=== PATIENT | female | born 1985 | race Caucasian/White ===

== ENCOUNTER 2017-06-14 18:52 | Emergency (ER) | payer OTHER ==
[2017-06-14] MEDS ORDERED: ORPHENADRINE 30 MG/ML 2 ML VIAL IM STA (19:58)
[2017-06-14] MEDS ORDERED: KETOROLAC 60 MG/2 ML VIAL IM STA (19:58)
--- NOTE | 2017-06-14 20:19 | ED ---
General Adult HPI - General Chief complaint: Back Pain/Injury Stated complaint: back pain Time Seen by Provider: 06/14/17 19:30 Source: patient, RN notes reviewed, old records reviewed Mode of arrival: ambulatory Limitations: no limitations - History of Present Illness Initial comments: This patient is a 31-year-old female presents emergency Department a chief complaint of lower back pain. 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 Patient reports that she has no trauma or falls. She states been worse for the past few days. She' s not been taking any medication for pain. Patient denies any saddle anesthesias. Patient denies any recent fever, chills, shortness of breath, chest pain, abdominal pain, nausea vomiting, numbness or tingling, dysuria or hematuria, constipation or diarrhea, headaches or visual changes, or any other current symptoms - Related Data Previous Rx's Medication Instructions Recorded Cyclobenzaprine [Flexeril] 10 mg PO TID #20 tab 06/14/17 Ibuprofen [Motrin] 800 mg PO TID #30 tab 06/14/17 Allergies Allergy/AdvReac Type Severity Reaction Status Date / Time codeine Allergy Unknown Verified 06/14/17 20:16 codeine phosphate Allergy Swelling Verified 06/14/17 20:16 [From Tylenol-Codeine #3] ondansetron HCl [From Zofran] Allergy Swelling Verified 06/14/17 20:16 tomato [Tomato] Allergy Rash/Hives Verified 06/14/17 20:16 Review of Systems ROS Statement: Those systems with pertinent positive or pertinent negative responses have been documented in the HPI. ROS Other: All systems not noted in ROS Statement are negative. Past Medical History Past Medical History: Asthma Additional Past Medical History / Comment(s): pancreatitis, back pain History of Any Multi-Drug Resistant Organisms: None Reported Past Surgical History: Cholecystectomy, Orthopedic Surgery Additional Past Surgical History / Comment(s): arm surgery, pancreas surgery Past Psychological History: No Psychological Hx Reported Smoking Status: Current every day smoker Past Alcohol Use History: None Reported Past Drug Use History: Marijuana General Exam - General Exam Comments Initial Comments: Well appearing 31 year old female, no acute distress. Limitations: no limitations General appearance: alert, in no apparent distress Head exam: Present: atraumatic, normocephalic, normal inspection Eye exam: Present: normal appearance, PERRL, EOMI. Absent: scleral icterus, conjunctival injection, periorbital swelling ENT exam: Present: normal exam, mucous membranes moist Neck exam: Present: normal inspection. Absent: tenderness, meningismus, lymphadenopathy Respiratory exam: Present: normal lung sounds bilaterally. Absent: respiratory distress, wheezes, rales, rhonchi, stridor Cardiovascular Exam: Present: regular rate, normal rhythm, normal heart sounds. Absent: systolic murmur, diastolic murmur, rubs, gallop, clicks GI/Abdominal exam: Present: soft, normal bowel sounds. Absent: distended, tenderness, guarding, rebound, rigid Extremities exam: Present: normal inspection, full ROM, normal capillary refill. Absent: tenderness, pedal edema, joint swelling, calf tenderness Back exam: Present: normal inspection, tenderness (Lumbar paraspinal tenderness. ) Neurological exam: Present: alert, oriented X3, CN II-XII intact Psychiatric exam: Present: normal affect, normal mood Skin exam: Present: warm, dry, intact, normal color. Absent: rash Course Vital Signs 06/14/17 06/14/17 19:20 21:14 Temperature 98.6 F 97.3 F L Pulse Rate 93 54 L Respiratory 20 16 Rate Blood Pressure 99/60 116/68 O2 Sat by Pulse 97 98 Oximetry Medical Decision Making - Medical Decision Making 31-year-old female presents emergency department today chief complaint of worsening lower back pain. She has history of degenerative disc disease. She states she is not taking anything for pain. She reports it's worse with movement. No saddle anesthesias. She has full range motion her legs no difficulty walking. She does have some minor tenderness over lumbar spinal region. X-rays were reviewed at this time showed no acute process. No spondylolisthesis or spondylolysis. Patient informed of these results. She was given IM Toradol and Norflex. Discussed the patient is to take antibiotic and her medicine and I can write the patient for Flexeril for muscle relaxer. Discussed following up with primary care provider and return parameters were discussed. - Radiology Data Radiology results: report reviewed Normal lumbar spine. Disposition Clinical Impression: Strain of lumbar region, Mechanical back pain Disposition: HOME SELF-CARE Condition: Good Instructions: Chronic Back Pain (ED) Additional Instructions: Patient advised to follow-up with primary care provider. Is take the medications as prescribed. Return to the emergency department if any alarming signs or symptoms occur. Prescriptions: Cyclobenzaprine [Flexeril] 10 mg PO TID #20 tab Ibuprofen [Motrin] 800 mg PO TID #30 tab Referrals: Presley Ashby DO [Primary Care Provider] - 1-2 days Time of Disposition: 21:01
--- NOTE | 2017-06-14 20:33 | XR ---
EXAMINATION TYPE: XR lumbar spine 2 or 3V DATE OF EXAM: 06/14/2017 COMPARISON: 06/03/2011 HISTORY: Pain TECHNIQUE: 3 views FINDINGS: Lumbar vertebra have normal spacing and alignment. Posterior elements are intact. Sacroilia c joints appear normal. IUD is noted. There are clips from cholecystectomy. IMPRESSION: Normal lumbar spine. No change.
[2017-06-14 21:15] VITALS: BP 116/68; PULSE 54; RESP 16; TEMP 97.3
== END 2017-06-14 21:15 | disposition home or self-care (01) ==
LOC: EC 18:52
DX: S39.012A Strain of muscle, fascia and tendon of lower back, initial encounter (principal); F17.200 Nicotine dependence, unspecified, uncomplicated; Z87.39 Personal history of other diseases of the musculoskeletal system and connective tissue; Z98.890 Other specified postprocedural states; Z88.5 Allergy status to narcotic agent; Z88.8 Allergy status to other drugs, medicaments and biological substances; Z91.018 Allergy to other foods
CPT/HCPCS: 72100; 99284; 96372 ×2; J2360; J1885

== ENCOUNTER 2018-01-04 12:03 | Emergency (ER) | payer OTHER ==
[2018-01-04 12:10] VITALS: BP 123/86; PULSE 74; RESP 20; TEMP 97.6
--- NOTE | 2018-01-04 12:50 | ED ---
URI HPI - General Chief Complaint: Upper Respiratory Infection Stated Complaint: Coughing/sore throat Time Seen by Provider: 01/04/18 12:16 Source: patient, RN notes reviewed Mode of arrival: ambulatory Limitations: no limitations - History of Present Illness Initial Comments: This is a 32-year-old female who presents to the emergency department with chief complaint of upper respiratory symptoms. Patient complains of sore throat , nasal congestion, cough and bilateral ear pain for the past 4 days. She states her young daughter has the same symptoms. Denies any fevers or chills. Denies chest pain or shortness of breath, abdominal pain, nausea or vomiting, diarrhea or constipation. - Related Data Home Medications Medication Instructions Recorded Confirmed No Known Home Medications 01/04/18 01/04/18 Allergies Allergy/AdvReac Type Severity Reaction Status Date / Time codeine Allergy Swelling Verified 01/04/18 12:38 codeine phosphate Allergy Swelling Verified 01/04/18 12:38 [From Tylenol-Codeine #3] ondansetron HCl [From Zofran] Allergy Swelling Verified 01/04/18 12:38 tomato [Tomato] Allergy Rash/Hives Verified 01/04/18 12:38 Review of Systems ROS Statement: Those systems with pertinent positive or pertinent negative responses have been documented in the HPI. ROS Other: All systems not noted in ROS Statement are negative. Past Medical History Past Medical History: Asthma Additional Past Medical History / Comment(s): pancreatitis, back pain History of Any Multi-Drug Resistant Organisms: None Reported Past Surgical History: Cholecystectomy, Orthopedic Surgery Additional Past Surgical History / Comment(s): arm surgery, pancreas surgery Past Psychological History: No Psychological Hx Reported Smoking Status: Current every day smoker Past Alcohol Use History: None Reported Past Drug Use History: Marijuana General Exam - General Exam Comments Initial Comments: General: Awake and alert, well-developed; in no apparent distress. HEENT: Head atraumatic, normocephalic. Pupils are equal, round and reactive to light. Extraocular movements intact. Oropharynx moist without erythema or exudate. Bilateral TMs pearly with mild clear effusion. Neck: Supple. Normal ROM. Cardiovascular: Regular rate and rhythm. No murmurs, rubs or gallops. Chest symmetrical. Respiratory: Lungs clear to auscultation bilaterally. No wheezes, rales or rhonchi. Normal respiratory effort with no use of accessory muscles. Musculoskeletal: Normal ROM, no tenderness bilateral upper and lower extremities. Ambulating normally. Skin: [place], warm and dry without rashes or lesions. Neurological: Alert and oriented x3. CN II-XII grossly intact. Speech is fluent and answers are appropriate. No focal neuro deficits. Psychiatric: Normal mood and affect. No overt signs of depression or anxiety noted. Limitations: no limitations Course Vital Signs 01/04/18 12:08 Temperature 97.6 F Pulse Rate 74 Respiratory 20 Rate Blood Pressure 123/86 O2 Sat by Pulse 98 Oximetry Medical Decision Making - Medical Decision Making This is a 32-year-old female presents to the emergency department with chief complaint of upper respiratory symptoms. Patient reports cough, nasal congestion, sore throat and bilateral ear pain for the past 4 days. Her daughter has the same symptoms. Likely suffering from common cold. Recommended supportive treatment. Patient's vital signs are stable and she is in no acute distress. She denies any fevers or chills. Patient will be discharged home at this time. She is in agreement and voices understanding. All questions were answered. Disposition Clinical Impression: Upper respiratory infection Disposition: HOME SELF-CARE Instructions: Upper Respiratory Infection (ED) Additional Instructions: Please follow up with primary care provider within 1-2 days. Return to emergency department if symptoms should worsen or any concerns arise. Is patient prescribed a controlled substance at d/c from ED?: No Referrals: Presley Ashby DO [Primary Care Provider] - 1-2 days Time of Disposition: 12:49
== END 2018-01-04 13:18 | disposition home or self-care (01) ==
LOC: EC 12:03
DX: J06.9 Acute upper respiratory infection, unspecified (principal); H73.893 Other specified disorders of tympanic membrane, bilateral; H92.03 Otalgia, bilateral; F17.200 Nicotine dependence, unspecified, uncomplicated; Z88.5 Allergy status to narcotic agent; Z88.8 Allergy status to other drugs, medicaments and biological substances; Z91.018 Allergy to other foods
CPT/HCPCS: 99283

== ENCOUNTER 2019-05-24 14:15 | Emergency (ER) | payer OTHER ==
[2019-05-24 14:23] VITALS: BP 120/79; PULSE 76; RESP 18; TEMP 98.4
[2019-05-24] MEDS ORDERED: ACET/COD 300 MG/30 MG STARTER PACK 6 TAB BTL PO STA (14:40)
[2019-05-24] MEDS ORDERED: PENICILLIN VK 500MG STARTER 4 TAB BTL PO STA (14:40)
--- NOTE | 2019-05-24 14:42 | ED ---
General Adult HPI - General Chief complaint: Dental/Oral Stated complaint: Oral Pain Time Seen by Provider: 05/24/19 14:26 Source: patient, RN notes reviewed Mode of arrival: ambulatory Limitations: no limitations - History of Present Illness Initial comments: 33-year-old female presents to the emergency department for a chief complaint of dental pain. Patient states that a few days ago she broke her left molar. States it just started breaking into pieces. States it is very painful and swollen. Patient states she did try to contact her dentist but she was told she does not have dental insurance at this time. Patient denies any neck stiffness. Denies any swelling under the tongue. Does admit that she has an abrasion to the lateral aspect of the left tongue from her broken tooth. Patient denies fevers or chills.Patient has no other complaints at this time including shortness of breath, chest pain, abdominal pain, nausea or vomiting, headache, or visual changes. - Related Data Previous Rx's Medication Instructions Recorded Ibuprofen [Motrin] 600 mg PO Q6HR PRN #20 tab 05/24/19 Penicillin V Potassium [Pen Vee K] 500 mg PO Q6H 10 Days #40 tablet 05/24/19 Allergies Allergy/AdvReac Type Severity Reaction Status Date / Time codeine Allergy Swelling Verified 05/24/19 14:23 codeine phosphate Allergy Swelling Verified 05/24/19 14:23 [From Tylenol-Codeine #3] ondansetron HCl [From Zofran] Allergy Swelling Verified 05/24/19 14:23 tomato [Tomato] Allergy Rash/Hives Verified 05/24/19 14:23 Review of Systems ROS Statement: Those systems with pertinent positive or pertinent negative responses have been documented in the HPI. ROS Other: All systems not noted in ROS Statement are negative. Past Medical History Past Medical History: Asthma Additional Past Medical History / Comment(s): pancreatitis, back pain History of Any Multi-Drug Resistant Organisms: None Reported Past Surgical History: Cholecystectomy, Orthopedic Surgery Additional Past Surgical History / Comment(s): arm surgery, pancreas surgery Past Psychological History: Anxiety, Depression Smoking Status: Current every day smoker Past Alcohol Use History: None Reported Past Drug Use History: Marijuana General Exam Limitations: no limitations General appearance: alert, in no apparent distress Head exam: Present: atraumatic, normocephalic, normal inspection Eye exam: Present: normal appearance, PERRL, EOMI. Absent: scleral icterus, conjunctival injection ENT exam: Present: normal exam, mucous membranes moist, TM's normal bilaterally, other (Generally poor dentition). Absent: normal oropharynx (Patient has a fractured tooth 31. there is no abscess palpated or visualized along the gumline. Patient does not have any significant edema of the gums. No edema sublingually. Patient does have a small abrasion noted to the lateral aspect of the left side of the tongue caused by her tooth.) Neck exam: Present: normal inspection, full ROM (Full range of motion,). Absent: tenderness, meningismus, lymphadenopathy Respiratory exam: Present: normal lung sounds bilaterally. Absent: respiratory distress, wheezes, rales, rhonchi, stridor Cardiovascular Exam: Present: regular rate, normal rhythm, normal heart sounds. Absent: systolic murmur, diastolic murmur, rubs, gallop, clicks Course Vital Signs 05/24/19 14:20 Temperature 98.4 F Pulse Rate 76 Respiratory 18 Rate Blood Pressure 120/79 O2 Sat by Pulse 97 Oximetry Medical Decision Making - Medical Decision Making Patient has a fractured molar on the left lower jaw. I do not see any abscesses. I do not see any gingival edema or sublingual edema. Patient be tr eated with antibiotics to prevent infection. Patient states her pain is uncontrolled at home. I did give her Motrin, denies any chance of . Patient states she is not ALLERGIC to codeine it just causes slight nausea when she does not eat. Therefore she'll be given a starter pack of Tylenol 3. I recommended she follow up with her dentist as soon as possible and I did give her follow-up to [facility] as she may have lapsed insurance. I recommend she returns or she has any worsening symptoms. These were discussed thoroughly with her. Disposition Clinical Impression: Pain, dental Disposition: HOME SELF-CARE Condition: Good Instructions (If sedation given, give patient instructions): Toothache (ED) Additional Instructions: Please take antibiotic as directed. Take Motrin for pain. If pain is severe take Tylenol 3. Do not [address] or operate machinery while taking Tylenol 3 as it may make you drowsy. Follow-up with primary care as well as dentist as soon as possible. Return here for any worsening symptoms. [facility] Address: [address] [place] [address] [place] [address] Prescriptions: Ibuprofen [Motrin] 600 mg PO Q6HR PRN #20 tab PRN Reason: Pain Penicillin V Potassium [Pen Vee K] 500 mg PO Q6H 10 Days #40 tablet Is patient prescribed a controlled substance at d/c from ED?: No Referrals: Presley Ashby DO [Primary Care Provider] - 1-2 days Time of Disposition: 14:41
== END 2019-05-24 14:48 | disposition home or self-care (01) ==
LOC: EC 14:15
DX: S02.5XXA Fracture of tooth (traumatic), initial encounter for closed fracture (principal); S00.512A Abrasion of oral cavity, initial encounter; F17.200 Nicotine dependence, unspecified, uncomplicated; Z88.5 Allergy status to narcotic agent; Z88.8 Allergy status to other drugs, medicaments and biological substances; Z91.018 Allergy to other foods
CPT/HCPCS: 99282

== ENCOUNTER 2020-09-07 20:55 | Emergency (ER) | payer OTHER ==
[2020-09-07 21:17] VITALS: PULSE 100; RESP 20
[2020-09-07] MEDS ORDERED: HYDROmorphone 1 MG/ML 1 ML SYRINGE IM STA (21:44)
[2020-09-07] MEDS ORDERED: dexAMETHasone 2 MG TAB PO STA (21:44)
[2020-09-07] MEDS ORDERED: diphenhydrAMINE 50 MG CAP PO STA (21:44)
[2020-09-07] MEDS ORDERED: IBUPROFEN 800 MG TAB PO STA (21:44)
--- NOTE | 2020-09-07 21:45 | ED ---
Recheck HPI - General Chief Complaint: Back Pain/Injury Stated Complaint: Back pain Time Seen by Provider: 09/07/20 21:40 Source: patient Mode of arrival: ambulatory Limitations: no limitations - Related Data Previous Rx's Medication Instructions Recorded Ibuprofen [Motrin] 600 mg PO Q6HR PRN #20 tab 05/24/19 Penicillin V Potassium [Pen Vee K] 500 mg PO Q6H 10 Days #40 tablet 05/24/19 Allergies Allergy/AdvReac Type Severity Reaction Status Date / Time codeine Allergy Swelling Verified 09/07/20 21:17 codeine phosphate Allergy Swelling Verified 09/07/20 21:17 [From Tylenol-Codeine #3] ondansetron HCl [From Zofran] Allergy Swelling Verified 09/07/20 21:17 tomato [Tomato] Allergy Rash/Hives Verified 09/07/20 21:17 Review of Systems ROS Statement: Those systems with pertinent positive or pertinent negative responses have been documented in the HPI. ROS Other: All systems not noted in ROS Statement are negative. Past Medical History Past Medical History: Asthma Additional Past Medical History / Comment(s): pancreatitis, back pain History of Any Multi-Drug Resistant Organisms: None Reported Past Surgical History: Cholecystectomy, Orthopedic Surgery Additional Past Surgical History / Comment(s): arm surgery, pancreas surgery Past Psychological History: Anxiety, Depression Smoking Status: Current every day smoker Past Alcohol Use History: None Reported Past Drug Use History: Marijuana General Exam Limitations: no limitations Course Vital Signs 09/07/20 21:09 Temperature 98.9 F Pulse Rate 100 Respiratory 20 Rate Blood Pressure 146/117 O2 Sat by Pulse 98 Oximetry Disposition Clinical Impression: Strain of lumbar region, Lumbar radiculopathy, Sciatica Disposition: HOME SELF-CARE Condition: Good Instructions (If sedation given, give patient instructions): Acute Low Back Pain (ED) Is patient prescribed a controlled substance at d/c from ED?: No Referrals: Presley Ashby DO [Primary Care Provider] - 1-2 days
[2020-09-07] MEDS ORDERED: traMADol 50 MG STARTER PACK 3 TAB BTL PO STA (22:25)
--- NOTE | 2020-09-07 22:56 | CT ---
EXAMINATION TYPE: CT abdomen pelvis wo con DATE OF EXAM: 09/07/2020 COMPARISON: 04/26/2012 HISTORY: Back pain, sciatic pain CT DLP: 382.9 mGycm Automated exposure control for dose reduction was used. Lung bases are clear. There is no pleural effusion. Heart size is normal. There is no pericardial eff usion. Liver spleen appear intact. There is complex 1.5 cm cyst in the tail of the pancreas. This is in same location as a large pseudocyst evident on previous exam. There are clips from cholecystectomy. The b ile ducts are not dilated. Stomach appears normal. There is no adrenal mass. Kidneys have normal size. There is no hydronephrosis. There is 1 cm calculu s lower pole right kidney. There is 4 mm calculus upper pole left kidney. There is no retroperitoneal adenopathy. Ureters are not dilated. Appendix is posterior and lateral and appears normal. The bladd er distends smoothly. There is no inguinal hernia. There is no free fluid in the pelvis. There is IUD in the uterine fundus. The lumbar vertebra have normal alignment. Disc spaces are normal. There is n o compression fracture. Posterior elements are intact. The bony pelvis is intact. Hip joints are inta ct. IMPRESSION: Bilateral nonobstructing renal calculi. Normal appendix. No sign of acute abdomen and pelvis. Small c ystic mass in the tail of the pancreas is likely the residual of a pseudocyst evident on old exam.
[2020-09-07 23:22] VITALS: BP 160/90; TEMP 98
== END 2020-09-07 23:21 | disposition home or self-care (01) ==
LOC: EC 20:55
DX: S39.012A Strain of muscle, fascia and tendon of lower back, initial encounter (principal); M54.9 Dorsalgia, unspecified; M54.16 Radiculopathy, lumbar region; M54.30 Sciatica, unspecified side; J45.909 Unspecified asthma, uncomplicated; F17.200 Nicotine dependence, unspecified, uncomplicated; F12.90 Cannabis use, unspecified, uncomplicated; Z90.49 Acquired absence of other specified parts of digestive tract; X58.XXXA Exposure to other specified factors, initial encounter
CPT/HCPCS: 74176; 99284; 96372; J1170; J8540

== ENCOUNTER 2020-09-09 13:15 | Observation (INO) | payer OTHER ==
[2020-09-09] MEDS ORDERED: METOCLOPRAMIDE 5 MG/ML 2 ML VIAL IVP STA ×2 (14:31→16:15)
[2020-09-09] MEDS ORDERED: diphenhydrAMINE 50 MG/ML 1 ML VIAL IVP STA (14:31)
[2020-09-09] MEDS ORDERED: SODIUM CHLORIDE 0.9% 1,000 ML IV STA (14:31)
[2020-09-09] MEDS ORDERED: KETOROLAC 15 MG/ML 1 ML VIAL IVP STA (14:33)
--- NOTE | 2020-09-09 14:42 | ED ---
Abdominal Pain HPI - General Chief Complaint: Abdominal Pain Stated Complaint: Leg Pain,vomiting Time Seen by Provider: 09/09/20 14:00 Source: patient Mode of arrival: ambulatory Limitations: no limitations - History of Present Illness Initial Comments: Patient is a 34-year-old female presenting to the emergency Department with complaints of abdominal pain, nausea and vomiting for the last 4 days. Patient was seen here 2 days ago for left back pain, she has history of chronic back pain with sciatica. She states this has not changed and is still there. She states over the past 4 days she has not been able to keep any foods or liquids down. Patient seems very anxious. She states she has a history of pancreatitis in the past, she's had a pancreatic cyst drained a few times. She admits a cholecystectomy, no other abdominal surgeries. She denies any diarrhea, no fevers or chills. He admits to occasional marijuana use, no other drugs. She has no further complaints. Upon arrival to the ER, she seems very anxious, her pulse is 139, rest of vitals are normal. - Related Data Home Medications Medication Instructions Recorded Confirmed No Known Home Medications 09/09/20 09/09/20 Allergies Allergy/AdvReac Type Severity Reaction Status Date / Time codeine Allergy Swelling Verified 09/09/20 16:13 codeine phosphate Allergy Swelling Verified 09/09/20 16:13 [From Tylenol-Codeine #3] ondansetron HCl [From Zofran] Allergy Swelling Verified 09/09/20 16:13 tomato [Tomato] Allergy Rash/Hives Verified 09/09/20 16:13 Review of Systems ROS Statement: Those systems with pertinent positive or pertinent negative responses have been documented in the HPI. ROS Other: All systems not noted in ROS Statement are negative. Past Medical History Past Medical History: Asthma Additional Past Medical History / Comment(s): pancreatitis, back pain History of Any Multi-Drug Resistant Organisms: None Reported Past Surgical History: Cholecystectomy, Orthopedic Surgery Additional Past Surgical History / Comment(s): arm surgery, pancreas surgery Past Psychological History: Anxiety, Depression Smoking Status: Current every day smoker Past Alcohol Use History: None Reported Past Drug Use History: Marijuana General Exam - General Exam Comments Initial Comments: GENERAL: Patient is well-developed and well-nourished. Patient is nontoxic and in mild distress, very anxious. HEAD: Atraumatic, normocephalic. EYES: Pupils equal round and reactive to light, extraocular movements intact, sclera anicteric, conjunctiva are normal. Eyelids were unremarkable. ENT: TMs normal, nares patent, oropharynx clear without exudates. Moist mucous membranes. NECK: Normal range of motion, supple without lymphadenopathy or JVD. LUNGS: Unlabored respirations. Breath sounds clear to auscultation bilaterally and equal. No wheezes rales or rhonchi. HEART: Regular rate and rhythm without murmurs, rubs or gallops. ABDOMEN: Soft, generalized abdominal discomfort, no specific area pain, normoactive bowel sounds. No guarding, no rebound. No masses appreciated. : Deferred MUSCULOSKELETAL: Normal extremities with adequate strength and normal range of motion, no pitting or edema. No clubbing or cyanosis. NEUROLOGICAL: Patient is alert and oriented x 3. Motor and sensory are also intact. Cranial nerves II through XII grossly intact. Symmetrical smile. Normal speech, normal gait. PSYCH: Normal mood, normal affect. SKIN: Warm, Dry, normal turgor, no rashes or lesions noted. Limitations: no limitations Course Vital Signs 09/09/20 09/09/20 13:33 15:36 Temperature 97.9 F Pulse Rate 139 H 99 Respiratory 18 18 Rate Blood Pressure 131/86 158/96 O2 Sat by Pulse 98 98 Oximetry Medical Decision Making - Medical Decision Making Patient is a 34-year-old female here for nausea, vomiting, generalized abdominal discomfort with past 4 days. She is also complaining of chronic left low back pain. States the back pain is unchanged. She was here 2 days ago for similar complaint, CT of abdomen and pelvis 2 days ago was completely normal. Patient was tachycardia upon arrival, rest of vitals normal. Labs show a white count of 16.7, this is most likely reactive, creatinine is 1.41, BUN is 46, lactic acid is 2.3, lipase is 109, urine does show some bacteria, WBCs however this was a dirty sample, hCG is not detected, urine drug screen is positive for cocaine and marijuana. Given a liter fluids, some Benadryl and Reglan does report some mild improvement in her symptoms. She states her belly pain is better. Patient will be admitted for dehydration, RUTH. Patient accepted by Dr. Bahena. Case discussed with Dr. Alejandra. - Lab Data Result diagrams: 09/09/20 14:38 09/09/20 14:38 Lab Results 09/09/20 09/09/20 09/09/20 Range/Units 14:38 14:38 14:38 WBC 16.7 H (3.8-10.6) k/uL RBC 5.52 H (3.80-5.40) m/uL Hgb 17.5 H (11.4-16.0) gm/dL Hct 49.3 H (34.0-46.0) % MCV 89.3 (80.0-100.0) fL MCH 31.7 (25.0-35.0) pg MCHC 35.5 (31.0-37.0) g/dL RDW 13.1 (11.5-15.5) % Plt Count 286 (150-450) k/uL MPV 8.7 Neutrophils % 79 % Lymphocytes % 10 % Monocytes % 10 % Eosinophils % 1 % Basophils % 0 % Neutrophils # 13.1 H (1.3-7.7) k/uL Lymphocytes # 1.6 (1.0-4.8) k/uL Monocytes # 1.6 H (0-1.0) k/uL Eosinophils # 0.1 (0-0.7) k/uL Basophils # 0.0 (0-0.2) k/uL Sodium (137-145) mmol/L Potassium (3.5-5.1) mmol/L Chloride (98-107) mmol/L Carbon Dioxide (22-30) mmol/L Anion Gap mmol/L BUN (7-17) mg/dL Creatinine (0.52-1.04) mg/dL Est GFR (CKD-EPI)AfAm (>60 ml/min/1.73 sqM) Est GFR (CKD-EPI)NonAf (>60 ml/min/1.73 sqM) Glucose (74-99) mg/dL Plasma Lactic Acid Justin (0.7-2.0) mmol/L Calcium (8.4-10.2) mg/dL Total Bilirubin (0.2-1.3) mg/dL AST (14-36) U/L ALT (4-34) U/L Alkaline Phosphatase (38-126) U/L Total Protein (6.3-8.2) g/dL Albumin (3.5-5.0) g/dL Amylase (30-110) U/L Lipase (23-300) U/L Urine Color Yellow Urine Appearance Cloudy H (Clear) Urine pH 5.5 (5.0-8.0) Ur Specific [place] 1.017 (1.001-1.035) Urine Protein Trace H (Negative) Urine Glucose (UA) Negative (Negative) Urine Ketones 1+ H (Negative) Urine Blood Trace H (Negative) Urine Nitrite Negative (Negative) Urine Bilirubin Negative (Negative) Urine Urobilinogen <2.0 (<2.0) mg/dL Ur Leukocyte Esterase Large H (Negative) Urine RBC 16 H (0-5) /hpf Urine WBC 28 H (0-5) /hpf Ur Squamous Epith Cells 21 H (0-4) /hpf Urine Bacteria Rare H (None) /hpf Hyaline Casts 22 H (0-2) /lpf Urine Mucus Rare H (None) /hpf Urine HCG, Qual Not Detected (Not Detectd) Urine Opiates Screen Not Detected (NotDetected) Ur Oxycodone Screen Not Detected (NotDetected) Urine Methadone Screen Not Detected (NotDetected) Ur Propoxyphene Screen Not Detected (NotDetected) Ur Barbiturates Screen Not Detected (NotDetected) U Tricyclic Antidepress Not Detected (NotDetected) Ur Phencyclidine Scrn Not Detected (NotDetected) Ur Amphetamines Screen Not Detected (NotDetected) U Methamphetamines Scrn Not Detected (NotDetected) U Benzodiazepines Scrn Not Detected (NotDetected) Urine Cocaine Screen Detected H (NotDetected) U Marijuana (THC) Screen Detected H (NotDetected) 09/09/20 09/09/20 Range/Units 14:38 14:38 WBC (3.8-10.6) k/uL RBC (3.80-5.40) m/uL Hgb (11.4-16.0) gm/dL Hct (34.0-46.0) % MCV (80.0-100.0) fL MCH (25.0-35.0) pg MCHC (31.0-37.0) g/dL RDW (11.5-15.5) % Plt Count (150-450) k/uL MPV Neutrophils % % Lymphocytes % % Monocytes % % Eosinophils % % Basophils % % Neutrophils # (1.3-7.7) k/uL Lymphocytes # (1.0-4.8) k/uL Monocytes # (0-1.0) k/uL Eosinophils # (0-0.7) k/uL Basophils # (0-0.2) k/uL Sodium 135 L (137-145) mmol/L Potassium 4.0 (3.5-5.1) mmol/L Chloride 97 L (98-107) mmol/L Carbon Dioxide 19 L (22-30) mmol/L Anion Gap 19 mmol/L BUN 46 H (7-17) mg/dL Creatinine 1.41 H (0.52-1.04) mg/dL Est GFR (CKD-EPI)AfAm 57 (>60 ml/min/1.73 sqM) Est GFR (CKD-EPI)NonAf 49 (>60 ml/min/1.73 sqM) Glucose 117 H (74-99) mg/dL Plasma Lactic Acid Justin 2.3 H* (0.7-2.0) mmol/L Calcium 10.8 H (8.4-10.2) mg/dL Total Bilirubin 1.6 H (0.2-1.3) mg/dL AST 24 (14-36) U/L ALT 18 (4-34) U/L Alkaline Phosphatase 126 (38-126) U/L Total Protein 8.1 (6.3-8.2) g/dL Albumin 5.2 H (3.5-5.0) g/dL Amylase 87 (30-110) U/L Lipase 109 (23-300) U/L Urine Color Urine Appearance (Clear) Urine pH (5.0-8.0) Ur Specific [place] (1.001-1.035) Urine Protein (Negative) Urine Glucose (UA) (Negative) Urine Ketones (Negative) Urine Blood (Negative) Urine Nitrite (Negative) Urine Bilirubin (Negative) Urine Urobilinogen (<2.0) mg/dL Ur Leukocyte Esterase (Negative) Urine RBC (0-5) /hpf Urine WBC (0-5) /hpf Ur Squamous Epith Cells (0-4) /hpf Urine Bacteria (None) /hpf Hyaline Casts (0-2) /lpf Urine Mucus (None) /hpf Urine HCG, Qual (Not Detectd) Urine Opiates Screen (NotDetected) Ur Oxycodone Screen (NotDetected) Urine Methadone Screen (NotDetected) Ur Propoxyphene Screen (NotDetected) Ur Barbiturates Screen (NotDetected) U Tricyclic Antidepress (NotDetected) Ur Phencyclidine Scrn (NotDetected) Ur Amphetamines Screen (NotDetected) U Methamphetamines Scrn (NotDetected) U Benzodiazepines Scrn (NotDetected) Urine Cocaine Screen (NotDetected) U Marijuana (THC) Screen (NotDetected) Disposition Clinical Impression: Dehydration, RUTH (acute kidney injury) Disposition: ADMITTED IP TO THIS [facility] Condition: Stable Is patient prescribed a controlled substance at d/c from ED?: No Referrals: None,Stated [Primary Care Provider] - 1-2 days Decision Date: 09/09/20 Decision Time: 16:19
[2020-09-09 14:58] LABS: Basophils % (A) 0 %; Eosinophils # (A) 0.1 k/uL (0-0.7); Eosinophils % (A) 1 %; HCT 49.3 % (34.0-46.0); HGB 17.5 gm/dL (11.4-16.0); Lymphocytes # (A) 1.6 k/uL (1.0-4.8); Lymphocytes % (A) 10 %; MCH 31.7 pg (25.0-35.0); MCHC 35.5 g/dL (31.0-37.0); MCV 89.3 fL (80.0-100.0); Mean Platelet Volume 8.7; Monocytes # (A) 1.6 k/uL (0-1.0); Monocytes % (A) 10 %; Neutrophils # (A) 13.1 k/uL (1.3-7.7); Neutrophils % (A) 79 %; Platelet Count 286 k/uL (150-450); RBC 5.52 m/uL (3.80-5.40); RDW 13.1 % (11.5-15.5); WBC 16.7 k/uL (3.8-10.6)
[2020-09-09 15:00] LABS: Albumin 5.2 g/dL (3.5-5.0); Calcium 10.8 mg/dL (8.4-10.2); Total Bilirubin 1.6 mg/dL (0.2-1.3); Total Protein 8.1 g/dL (6.3-8.2)
[2020-09-09 15:04] LABS: Appearance,Urine Cloudy (Clear); Bacteria,Urine Rare /hpf; Bilirubin,Urine Negative (Negative); Blood,Urine Trace (Negative); Color,Urine Yellow; Glucose,Urine (UA) Negative (Negative); Hyaline Casts,Urine 22 /lpf (0-2); Ketones,Urine 1+ (Negative); Leukocyte Esterase,Urine Large (Negative); Mucus,Urine Rare /hpf; Nitrite,Urine Negative (Negative); PH, Urine 5.5 (5.0-8.0); Protein,Urine Trace (Negative); RBC,Urine 16 /hpf (0-5); Specific Gravity,Urine 1.017 (1.001-1.035); Squamous Epithelial Cell,Urine 21 /hpf (0-4); Urobilinogen,Urine <2.0 mg/dL (<2.0); WBC,Urine 28 /hpf (0-5)
[2020-09-09 15:10] LABS: Amphetamine Screen,Urine Not Detected (NotDetected); Barbiturate Screen,Urine Not Detected (NotDetected); Benzodiazepines Screen,Urine Not Detected (NotDetected); Cocaine Screen,Urine Detected (NotDetected); Methadone Screen, Urine Not Detected (NotDetected); Opiate Screen,Urine Not Detected (NotDetected); Oxycodone Screen, Urine Not Detected (NotDetected); Phencyclidine Screen,Urine Not Detected (NotDetected); Tricyclic Antidepressant,Urine Not Detected (NotDetected); Urn Cannabinoid Scrn Detected (NotDetected)
[2020-09-09] MEDS ORDERED: NALOXONE 0.4 MG/ML 1 ML VIAL IV PRN (16:13)
--- NOTE | 2020-09-09 18:04 | P.HPIM ---
<Homer Herman - Last Filed: 09/09/20 17:45> History of Present Illness H&P Date: 09/09/20 Chief Complaint: Abdominal pain and back pain History of Presenting Illness: Patient is a 34-year-old female with a past medical history of pancreatitis, anxiety, depression, nicotine use, and substance abuse. She presented to the emergency department with complaints of abdominal pain, nausea, and vomiting 4 days and was recently seen 2 days prior for chief complaint of uncontrolled chronic back pain with sciatica in which she reports remains unchanged. She was seen and fully evaluated in the emergency department found to have leukocytosis with a WBC count of 16.7 with a left shift and an acute kidney injury with BUN 46, creatinine 1.41, and GFR 49 with baseline creatinine 0.82. And had an elevated lactate of 2.3 as well as an elevated bili of 1.6. Urine drug screen positive for cocaine and marijuana. Urine hCG negative for . Patient given fluid bolus followed by maintenance infusion of IV fluids. She was admitted under our services for dehydration and RUTH. Upon assessment at bedside patient reports diffuse abdominal pain, upon palpation patient very tender to right upper quadrant and epigastric region. Patient appears very anxious and pupils dilated 5 mm to 4 mm with reaction to light. Patient denies having any fevers, chills, diaphoresis, headache, lightheadedness, dizziness, chest pain, palpitations, shortness of breath, or experiencing any numbness/tingling/weakness in her extremities. She reports abdominal pain 10 out of 10 and back pain radiating down her left leg 9 out of 10. She denies any abdominal trauma or having any recent falls or injuries. Patient denies any vaginal bleeding or discharge. Review of systems: Pertinent positives and negatives as discussed in HPI, a complete review of systems was performed and all other systems are negative. Physical exam: General: non toxic, no distress, appears at stated age Derm: warm, dry Head: atraumatic, normocephalic, symmetric Eyes: EOMI, no lid lag, anicteric sclera. Pupils dilated 5 mm to 4 mm. Mouth: no lip lesion, mucus membranes moist Cardiovascular: S1-S2 normal with tachycardic rate in the 102 bpm and regular rhythm. No murmurs, gallops, or rubs noted. Posterior tibial pulses palpated bilaterally. Cap refill less than 2 seconds. Lungs: Respirations even, regular, and unlabored on room air. Lungs clear to au scultation bilaterally with no wheezes, rhonchi, or rales noted. No accessory muscle usage. Abdominal: soft, tenderness reported upon palpation to right upper and epigastric region. Ext: no gross muscle atrophy, no edema, no contractures Neuro: GCS 15. Speech clear. CN II-XI grossly intact, no focal neuro deficits Psych: Alert, oriented, anxious affect Assessment and Plan of Care: Abdominal pain accompanied by nausea, vomiting, and diarrhea -Leukocytosis with WBC count of 16.7 with left shift, elevated total bili of 1.6 and elevated lactate of 2.3. -Abdominal ultrasound to be completed -Patient to be NPO until further results available. -Symptomatic care and pain management with Reglan as needed for nausea and vomiting. -Continued fluid hydration. -Repeat lactate as well as repeat a.m. labs. Acute kidney injury, likely resulting from dehydration -BUN 46, creatinine 1.41, and GFR 49 with baseline creatinine 0.82 -Continue hydration with IV fluids. -Caution with nephrotoxic medications. -Continue to monitor with repeat a.m. labs. Polysubstance abuse -Urine drug screen positive for cocaine and marijuana -Patient educated on importance of cessation and risks of continued use up to and including . CODE STATUS: Full code DVT prophylaxis: Heparin Discussed with: Patient and RN Anticipated discharge date: Clinical course to determine Anticipated discharge place: Home A total of 45 minutes was spent on the care of this complex patient more than 50% of the time was spent in counseling and care coordination. Past Medical History Past Medical History: Asthma Additional Past Medical History / Comment(s): pancreatitis, back pain History of Any Multi-Drug Resistant Organisms: None Reported Past Surgical History: Cholecystectomy, Orthopedic Surgery Additional Past Surgical History / Comment(s): arm surgery, pancreas surgery Past Psychological History: Anxiety, Depression Smoking Status: Current every day smoker Past Alcohol Use History: None Reported Past Drug Use History: Marijuana Medications and Allergies Home Medications Medication Instructions Recorded Confirmed Type No Known Home Medications 09/09/20 09/09/20 History Allergies Allergy/AdvReac Type Severity Reaction Status Date / Time codeine Allergy Swelling Verified 09/09/20 16:13 codeine phosphate Allergy Swelling Verified 09/09/20 16:13 [From Tylenol-Codeine #3] ondansetron HCl [From Zofran] Allergy Swelling Verified 09/09/20 16:13 tomato [Tomato] Allergy Rash/Hives Verified 09/09/20 16:13 Physical Exam Vitals: Vital Signs Temp Pulse Resp BP Pulse Ox 09/09/20 15:36 99 18 158/96 98 09/09/20 13:33 97.9 F 139 H 18 131/86 98 Intake and Output 09/09/20 09/09/20 09/09/20 06:59 14:59 22:59 Other: Weight 58.967 kg Results CBC & Chem 7: 09/09/20 14:38 09/09/20 14:38 Labs: Abnormal Lab Results - Last 24 Hours (Table) 09/09/20 09/09/20 09/09/20 Range/Units 14:38 14:38 14:38 WBC 16.7 H (3.8-10.6) k/uL RBC 5.52 H (3.80-5.40) m/uL Hgb 17.5 H (11.4-16.0) gm/dL Hct 49.3 H (34.0-46.0) % Neutrophils # 13.1 H (1.3-7.7) k/uL Monocytes # 1.6 H (0-1.0) k/uL Sodium 135 L (137-145) mmol/L Chloride 97 L (98-107) mmol/L Carbon Dioxide 19 L (22-30) mmol/L BUN 46 H (7-17) mg/dL Creatinine 1.41 H (0.52-1.04) mg/dL Glucose 117 H (74-99) mg/dL Plasma Lactic Acid Justin (0.7-2.0) mmol/L Calcium 10.8 H (8.4-10.2) mg/dL Total Bilirubin 1.6 H (0.2-1.3) mg/dL Albumin 5.2 H (3.5-5.0) g/dL Urine Appearance Cloudy H (Clear) Urine Protein Trace H (Negative) Urine Ketones 1+ H (Negative) Urine Blood Trace H (Negative) Ur Leukocyte Esterase Large H (Negative) Urine RBC 16 H (0-5) /hpf Urine WBC 28 H (0-5) /hpf Ur Squamous Epith Cells 21 H (0-4) /hpf Urine Bacteria Rare H (None) /hpf Hyaline Casts 22 H (0-2) /lpf Urine Mucus Rare H (None) /hpf Urine Cocaine Screen Detected H (NotDetected) U Marijuana (THC) Screen Detected H (NotDetected) 09/09/20 Range/Units 14:38 WBC (3.8-10.6) k/uL RBC (3.80-5.40) m/uL Hgb (11.4-16.0) gm/dL Hct (34.0-46.0) % Neutrophils # (1.3-7.7) k/uL Monocytes # (0-1.0) k/uL Sodium (137-145) mmol/L Chloride (98-107) mmol/L Carbon Dioxide (22-30) mmol/L BUN (7-17) mg/dL Creatinine (0.52-1.04) mg/dL Glucose (74-99) mg/dL Plasma Lactic Acid Justin 2.3 H* (0.7-2.0) mmol/L Calcium (8.4-10.2) mg/dL Total Bilirubin (0.2-1.3) mg/dL Albumin (3.5-5.0) g/dL Urine Appearance (Clear) Urine Protein (Negative) Urine Ketones (Negative) Urine Blood (Negative) Ur Leukocyte Esterase (Negative) Urine RBC (0-5) /hpf Urine WBC (0-5) /hpf Ur Squamous Epith Cells (0-4) /hpf Urine Bacteria (None) /hpf Hyaline Casts (0-2) /lpf Urine Mucus (None) /hpf Urine Cocaine Screen (NotDetected) U Marijuana (THC) Screen (NotDetected) <Nancy Bahena - Last Filed: 09/09/20 18:49> Physical Exam Osteopathic Statement: *. No significant issues noted on an osteopathic structural exam other than those noted in the History and Physical/Consult. Vitals: Vital Signs Temp Pulse Resp BP Pulse Ox 09/09/20 18:02 104 H 18 141/108 97 09/09/20 15:36 99 18 158/96 98 09/09/20 13:33 97.9 F 139 H 18 131/86 98 Intake and Output 09/09/20 09/09/20 09/09/20 06:59 14:59 22:59 Other: Weight 58.967 kg Results CBC & Chem 7: 09/09/20 14:38 09/09/20 14:38 Labs: Abnormal Lab Results - Last 24 Hours (Table) 09/09/20 09/09/20 09/09/20 Range/Units 14:38 14:38 14:38 WBC 16.7 H (3.8-10.6) k/uL RBC 5.52 H (3.80-5.40) m/uL Hgb 17.5 H (11.4-16.0) gm/dL Hct 49.3 H (34.0-46.0) % Neutrophils # 13.1 H (1.3-7.7) k/uL Monocytes # 1.6 H (0-1.0) k/uL Sodium 135 L (137-145) mmol/L Chloride 97 L (98-107) mmol/L Carbon Dioxide 19 L (22-30) mmol/L BUN 46 H (7-17) mg/dL Creatinine 1.41 H (0.52-1.04) mg/dL Glucose 117 H (74-99) mg/dL Plasma Lactic Acid Justin (0.7-2.0) mmol/L Calcium 10.8 H (8.4-10.2) mg/dL Total Bilirubin 1.6 H (0.2-1.3) mg/dL Albumin 5.2 H (3.5-5.0) g/dL Urine Appearance Cloudy H (Clear) Urine Protein Trace H (Negative) Urine Ketones 1+ H (Negative) Urine Blood Trace H (Negative) Ur Leukocyte Esterase Large H (Negative) Urine RBC 16 H (0-5) /hpf Urine WBC 28 H (0-5) /hpf Ur Squamous Epith Cells 21 H (0-4) /hpf Urine Bacteria Rare H (None) /hpf Hyaline Casts 22 H (0-2) /lpf Urine Mucus Rare H (None) /hpf Urine Cocaine Screen Detected H (NotDetected) U Marijuana (THC) Screen Detected H (NotDetected) 09/09/20 Range/Units 14:38 WBC (3.8-10.6) k/uL RBC (3.80-5.40) m/uL Hgb (11.4-16.0) gm/dL Hct (34.0-46.0) % Neutrophils # (1.3-7.7) k/uL Monocytes # (0-1.0) k/uL Sodium (137-145) mmol/L Chloride (98-107) mmol/L Carbon Dioxide (22-30) mmol/L BUN (7-17) mg/dL Creatinine (0.52-1.04) mg/dL Glucose (74-99) mg/dL Plasma Lactic Acid Justin 2.3 H* (0.7-2.0) mmol/L Calcium (8.4-10.2) mg/dL Total Bilirubin (0.2-1.3) mg/dL Albumin (3.5-5.0) g/dL Urine Appearance (Clear) Urine Protein (Negative) Urine Ketones (Negative) Urine Blood (Negative) Ur Leukocyte Esterase (Negative) Urine RBC (0-5) /hpf Urine WBC (0-5) /hpf Ur Squamous Epith Cells (0-4) /hpf Urine Bacteria (None) /hpf Hyaline Casts (0-2) /lpf Urine Mucus (None) /hpf Urine Cocaine Screen (NotDetected) U Marijuana (THC) Screen (NotDetected) Assessment and Plan Assessment: Patient seen and evaluated by me independently. Patient was also seen by LADAN, the original author of this note. I am in agreement with the subjective, physical exam, and assessment and plan as documented with the addition/changes of my exam and assessment below. Gen: awake, alert HEENT: normocephalic, atraumatic, good hearing acuity, moist mucous membranes Resp: good air exchange, breathing comfortably with no accessory muscle use CVS: good distal perfusion x 4, GI: soft, diffuse tenderness to palpation, nondistended : no SPT, no CVAT, webber catheter not present MSK: no pitting edema, no clubbing Neuro: non-focal, moving all extremities Psych: cooperative, anxious mood Plan: IV fluids, repeat labs in the morning Right upper quadrant ultrasound Likely discharge tomorrow morning
[2020-09-09] MEDS: ACETAMINOPHEN TAB 325 MG TAB PO PRN (18:23)
[2020-09-09] MEDS: SODIUM CHLORIDE 0.9% 1,000 ML IV SCH (18:24)
[2020-09-09] MEDS: IBUPROFEN 400 MG TAB PO PRN (18:24)
[2020-09-09] MEDS: METOCLOPRAMIDE 5 MG/ML 2 ML VIAL IVP PRN (19:24)
--- NOTE | 2020-09-09 20:59 | US ---
EXAMINATION TYPE: US abdomen limited DATE OF EXAM: 09/09/2020 COMPARISON: CT, US CLINICAL HISTORY: Right upper quadrant abdominal tenderness . RUQ abdominal tenderness. Hx cholecyste ctomy, cyst on pancreas drained multiple times. EXAM MEASUREMENTS: Liver Length: 12.3 cm CBD: 0.56 cm Right Kidney: 10.3 x 4.0 x 3.7 cm Limited due to gas. Pancreas: Tail is obscured by overlying bowel gas. Limited. Liver: Slightly increased echogenicity, appears coarse. Gallbladder: Previous cholecystectomy. Evidence for sonographic Schaeffer's sign: No CBD: Portions seen appear to be wnl. Right Kidney: Hyperechoic focus seen lower pole: 0.5 x 0.4 x 0.2 cm. IMPRESSION: No dilated ducts. No evidence of pancreatic mass. No ascites. Right kidney shows no sign of obstructi on. Nonobstructing calculus lower pole right kidney.
[2020-09-09] MEDS: HEPARIN SODIUM,PORCINE/PF 5,000 UNIT/0.5 ML SYRINGE SQ SCH (21:24)
[2020-09-10] MEDS: SODIUM CHLORIDE 0.9% 1,000 ML IV SCH (01:32)
[2020-09-10] MEDS: ACETAMINOPHEN TAB 325 MG TAB PO PRN ×2 (01:32→07:44)
[2020-09-10 03:18] VITALS: TEMP 98.4
[2020-09-10] MEDS: METOCLOPRAMIDE 5 MG/ML 2 ML VIAL IVP PRN (05:43)
[2020-09-10] MEDS: IBUPROFEN 400 MG TAB PO PRN (05:44)
[2020-09-10 07:17] VITALS: BP 124/78; PULSE 88
[2020-09-10] MEDS: HEPARIN SODIUM,PORCINE/PF 5,000 UNIT/0.5 ML SYRINGE SQ SCH (07:38)
[2020-09-10 08:49] LABS: Basophils % (A) 0 %; Eosinophils # (A) 0.1 k/uL (0-0.7); Eosinophils % (A) 2 %; HCT 39.9 % (34.0-46.0); Lymphocytes # (A) 1.6 k/uL (1.0-4.8); Lymphocytes % (A) 20 %; MCH 31.8 pg (25.0-35.0); MCHC 35.3 g/dL (31.0-37.0); MCV 90.1 fL (80.0-100.0); Mean Platelet Volume 8.7; Monocytes # (A) 0.9 k/uL (0-1.0); Monocytes % (A) 12 %; Neutrophils # (A) 5.1 k/uL (1.3-7.7); Neutrophils % (A) 65 %; Platelet Count 190 k/uL (150-450); RBC 4.43 m/uL (3.80-5.40); RDW 12.9 % (11.5-15.5); WBC 7.9 k/uL (3.8-10.6)
[2020-09-10 08:58] VITALS: RESP 19
[2020-09-10 09:03] LABS: African American GFR (CKD) >90 (>60 ml/min/1.73 sqM); Anion Gap 9 mmol/L; Blood Urea Nitrogen 32 mg/dL (7-17); Calcium 8.3 mg/dL (8.4-10.2); Carbon Dioxide 21 mmol/L (22-30); Chloride 106 mmol/L (98-107); Glucose 70 mg/dL (74-99); Non-African American GFR(CKD) >90 (>60 ml/min/1.73 sqM); Potassium 3.5 mmol/L (3.5-5.1); Sodium 136 mmol/L (137-145)
[2020-09-10 09:20] LABS: HGB 14.1 gm/dL (11.4-16.0)
--- NOTE | 2020-09-10 09:33 | P.DS ---
Providers Date of admission: 09/09/20 16:13 Expected date of discharge: 09/10/20 Attending physician: Nancy Bahena MD Primary care physician: Stated None Hospital Course: Patient is a 34-year-old female with a past medical history of pancreatitis, anxiety, depression, nicotine use, and substance abuse. She presented to the emergency department with complaints of abdominal pain, nausea, and vomiting 4 days and was recently seen 2 days prior for chief complaint of uncontrolled chronic back pain with sciatica in which she reports remains unchanged. Patient was evaluated in the ER and was noted to have evidence of acute kidney injury and appeared dehydrated. Urine toxicology screen was positive for cocaine and marijuana. Patient was admitted to the hospital for aggressive IV fluid hydration. Her overall condition improved significantly. She underwent an abdominal ultrasound that was unremarkable for any acute findings. On the day of my evaluation, patient denies any abdominal pain. She was able to tolerate diet with no difficulty. Creatinine is back to normal. Patient was counseled extensively regarding drug/cocaine abuse. She verbalized understanding of the risks. She will be discharged home in a stable condition. For further details about this hospitalization please refer to the electronic chart. Patient Condition at Discharge: Stable Plan - Discharge Summary New Discharge Prescriptions: No Action No Known Home Medications Discharge Medication List No Known Home Medications 09/09/20 [History] Follow up Appointment(s)/Referral(s): None,Stated [Primary Care Provider] - 1-2 days
== END 2020-09-10 10:26 | disposition home or self-care (01) ==
LOC: EC 13:15 → 6NMEDSUR 16:13
PROVIDERS: ADMIT Internal Medicine; ATTEND Internal Medicine
DX: N17.9 Acute kidney failure, unspecified (principal); E86.0 Dehydration; R79.89 Other specified abnormal findings of blood chemistry; R10.84 Generalized abdominal pain; R11.2 Nausea with vomiting, unspecified; D72.829 Elevated white blood cell count, unspecified; M54.40 Lumbago with sciatica, unspecified side; G89.29 Other chronic pain; J45.909 Unspecified asthma, uncomplicated; F14.10 Cocaine abuse, uncomplicated; F12.10 Cannabis abuse, uncomplicated; F32.9 Major depressive disorder, single episode, unspecified; F41.9 Anxiety disorder, unspecified; F17.200 Nicotine dependence, unspecified, uncomplicated; Z20.822 Contact with and (suspected) exposure to COVID-19; Z90.49 Acquired absence of other specified parts of digestive tract; Z88.5 Allergy status to narcotic agent; Z88.1 Allergy status to other antibiotic agents; Z91.018 Allergy to other foods; Z87.19 Personal history of other diseases of the digestive system; Z98.890 Other specified postprocedural states
CPT/HCPCS: 96376 ×2; 96372 ×2; 96361; 96374; 96375; 99285; 36415; 80053; 80048; 82150; 83605; 83690; 85025 ×2; 81001; 81025; 80306; 87086; 87635; 76705; G0378 ×2; J1200; J2765 ×2; J1885; J1644 ×2